=== PATIENT | male | born 1990 | race African-American/Black ===

== ENCOUNTER 2017-06-30 11:01 | Emergency (ER) | payer MEDICAID, OTHER ==
[~2017-06-30] VITALS: Ht 175.3 cm; Wt 79.0 kg
[2017-06-30 11:08] VITALS: BP 145/80
== END 2017-06-30 12:49 | disposition home or self-care (01) ==
LOC: ER 12:06
DX: M54.9 Dorsalgia, unspecified (principal); M25.559 Pain in unspecified hip; M79.601 Pain in right arm; Z53.21 Procedure and treatment not carried out due to patient leaving prior to being seen by health care provider